=== PATIENT | female | born 1970 | race Caucasian/White ===

== ENCOUNTER 2017-01-01 16:07 | Emergency (ER) | payer SELFPAY ==
[2017-01-01 16:30] VITALS: BP 118/66; PULSE 79; TEMP 98.4; BMI 36.6
--- NOTE | 2017-01-01 17:27 | PDOC ---
History of Present Illness - General Chief Complaint: Cold Symptoms Stated Complaint: FEVER,PAIN Time Seen by Provider: 01/01/17 17:15 History Source: Patient Exam Limitations: Language Barrier (Patient's 2 adult children provided portuguese translation.) - History of Present Illness Initial Comments: CHIEF COMPLAINT: 46 y/o afebrile female with no significant PMH c/o body aches and tactile fever x 3 days. HISTORY OF PRESENT ILLNESS: The patient also admits she has had something "hanging" from her vagina for the past 3 years but has never had it checked out. She states for the past few months she's had pain with sex and she believes her vagina is what is causing the infection. She denies earache, cough , runny nose, CASTRO, neck pain, n/v/d, CP, SOB, abdominal pain, back pain, hematuria, dysuria, abnormal vaginal bleeding/discharge/odors. She took motrin this morning for her symptoms. She has never seen a ordnance handler. Vital signs on arrival are within normal limits. REVIEW OF SYSTEMS: GENERAL/CONSTITUTIONAL: Subjective fever. +body aches. HEAD, EYES, EARS, NOSE AND THROAT: No change in vision. No ear pain or discharge. No sore throat. CARDIOVASCULAR: No chest pain or shortness of breath. RESPIRATORY: No cough, wheezing, or hemoptysis. GASTROINTESTINAL: No abd pain, nausea, vomiting, diarrhea. GENITOURINARY: No dysuria, frequency, or change in urination. +abnormal vaginal finding MUSCULOSKELETAL: No joint or muscle swelling or pain. No neck or back pain. SKIN: No rash or easy bruising. NEUROLOGIC: No headache, vertigo, loss of consciousness, or loss of sensation. PHYSICAL EXAM: GENERAL: The patient is awake, alert, and fully oriented, in no acute distress. She is morbidly obese, ambulatory, in NAD or obvious discomfort. HEAD: Normal with no signs of trauma. ENT: Pupils equal, round and reactive to light, extraocular movements intact, sclera anicteric, conjunctiva clear. Neck supple. LUNGS: Clear to auscultation bilaterally. Normal excursion. No respiratory distress or use of accessory muscles. CV: RRR, S1/S2, no MRG. Cap refill < 2 sec. ABDOMEN: Soft, non-distended, non-tender even to deep palpation, no hepatomegaly or splenomegaly, no masses. VAGINAL/PELVIC: Slight bladder prolapse. No lacerations, lesions, discharge or bleeding in vaginal vault or from os. EXTREMITIES: Normal range of motion, no edema. NEUROLOGICAL: Normal speech, normal gait. CN II-XII grossly intact. PSYCH: Normal mood, normal affect. SKIN: Warm, dry, normal turgor, no rashes or lesions noted. Past History - Past Medical History Allergies/Adverse Reactions: Allergies Allergy/AdvReac Type Severity Reaction Status Date / Time No Known Allergies Allergy Verified 01/01/17 16:28 Home Medications: Ambulatory Orders NK [No Known Home Medication] 01/01/17 - Psycho/Social/Smoking Cessation Hx Suicidal Ideation: No Smoking History: Never smoked *Physical Exam - Vital Signs Last Vital Signs Temp Pulse Resp BP Pulse Ox 98.4 F 79 20 118/66 98 01/01/17 16:28 01/01/17 16:28 01/01/17 16:28 01/01/17 16:28 01/01/17 16:28 Medical Decision Making - Medical Decision Making A/P: 46 y/o female with viral illness and bladder/vaginal prolapse. Plan is as follows: 1. UA/hcg/culture Will give the patient a referral for a ordnance handler to f/u on prolapse and pain with intercourse. Instructed her to continue taking motrin/tylenol for fever, drink plenty of fluids and get lots of rest until she feels better. Suggested she return to the ER with any worsening or concerning symptoms. The patient verbalizes understanding of all instructions, has no further questions and is awaiting discharge. *DC/Admit/Observation/Transfer Diagnosis at time of Disposition: Viral syndrome, Prolapse of bladder - Discharge Dispostion Disposition: HOME Condition at time of disposition: Good - Referrals Referrals: Sangita Salvador MD [Staff Physician] - Call tomorrow - Patient Instructions Printed Discharge Instructions: DI for Viral Syndrome, Cystocele/Rectocele Additional Instructions: Discharge Instructions: -Take tylenol or motrin for fever -Drink plenty of fluids -Get lots of rest -Follow up with your doctor within 1 week -Follow up with Dr. Salvador within 2 weeks -Return to the ER with any worsening or concerning symptoms Instrucciones de lucila: - Tylenol o motrin para la fiebre -Beber mucho lquido -Descansa mucho - Siga con galvan mdico dentro de osmin semana -Continuar con el Dr. Salvador dentro de 2 semanas -Vuelva a la myesha de emergencias con cualquier empeoramiento o sntomas relacionados Print Language: GERMAN
[2017-01-01 19:24] LABS: URINE APPEARANCE CLEAR; URINE BILIRUBIN NEGATIVE (NEGATIVE); URINE BLOOD NEGATIVE (NEGATIVE); URINE COLOR COLORLESS; URINE GLUCOSE (UA) NEGATIVE (NEGATIVE); URINE KETONE NEGATIVE (NEGATIVE); URINE LEUK ESTERASE NEGATIVE (NEGATIVE); URINE NITRITE NEGATIVE (NEGATIVE); URINE PROTEIN NEGATIVE (NEGATIVE); URINE UROBILINOGEN NEGATIVE mg/dL (0.2-1.0)
== END 2017-01-01 19:36 | disposition home or self-care (01) ==
LOC: JERFT 16:07
DX: B34.9 Viral infection, unspecified (principal); N81.10 Cystocele, unspecified
CPT/HCPCS: 81003; 84703; 87086; 99281-25